=== PATIENT | female | born 1985 | race Asian ===

== ENCOUNTER 2020-04-09 08:11 | Outpatient (CLI) | payer OTHER ==
[2020-04-09 09:12] LABS: APPEARANCE,URINE SLIGHTLY-CLOUDY; BILIRUBIN,URINE NEGATIVE (NEGATIVE); COLOR,URINE YELLOW; GLUCOSE, URINE NEGATIVE (NEGATIVE); KETONES,URINE NEGATIVE (NEGATIVE); LEUKOCYTE ESTERASE,URINE LARGE (NEGATIVE); NITRITE,URINE NEGATIVE (NEGATIVE); PROTEIN,URINE NEGATIVE (NEGATIVE); URINE SPECIFIC GRAVITY 1.004; UROBILINOGEN,URINE NEGATIVE mg/dL (<2.0)
[2020-04-09 09:39] LABS: URINE AMPHETAMINES SCREEN NEGATIVE; URINE BARBITURATES SCREEN NEGATIVE; URINE BENZODIAZEPINES SCREEN NEGATIVE; URINE COCAINE SCREEN NEGATIVE; URINE MARIJUANA (THC) SCREEN NEGATIVE; URINE METHADONE SCREEN NEGATIVE; URINE PHENCYCLIDINE SCREEN NEGATIVE
--- NOTE | 2020-04-09 11:19 | Non Stress Test Report ---
Non Stress Test Datetime Report Generated by CPN: 04/09/2020 11:18 DEMOGRAPHIC EGA NST: 40.5 INDICATION Indication for Study (NST) Other: provider orders VITAL SIGNS Temperature - NST: 97.8 Pulse - NST: 75 RESP - NST: 18 NBPSYS NST: 94 NBPDIA NST: 55 MONITORING Monitor Explained: Monitor Explained; Test Explained; Patient Verbalized Understanding Time on Monitor: 04/09/2020 08:35 Time off Monitor: 04/09/2020 11:07 NST Duration: 152 NST INTERVENTIONS NST Interventions: None; PO Hydration; IV Fluids; Reposition Patient Physician Notified NST: pjones,cnm BABY A: [id number] BABY A Movement : Present Contraction Frequency : 6-8 FHR Baseline : 135 Accelerations : 15X15 Decelerations : None Variability : Moderate 6-25bpm NST Review: Meets Criteria for Reactive NST NST Review and Verified By : Delta Rapp RN NST Results: Reactive NST REPORT Report Trigger: Send Report
== END 2020-04-09 11:17 | disposition home or self-care (01) ==
LOC: LC 08:11
PROVIDERS: ATTEND Obstetrics & Gynecology Gynecology
DX: O48.0 Post-term pregnancy (principal); Z3A.40 40 weeks gestation of pregnancy
CPT/HCPCS: 59025; 80307; 81005